=== PATIENT | male | born 1955 | race African-American/Black ===

== ENCOUNTER 2025-06-23 11:35 | Inpatient (IN) | payer OTHER, MEDICAID, MEDICARE ==
[~2025-06-23] VITALS: Ht 172.7 cm; Wt 73.9 kg
[2025-06-23 11:39] VITALS: O2SAT 98
[2025-06-23 12:26] LABS: HEMATOCRIT. 28.1 % (42.0-52.0); HEMOGLOBIN. 9.5 g/dL (14.0-18.0); MEAN PLATELET VOLUME 5.6 fl (7.4-10.4); PLATELET 475 x1000/uL (130-400); RED BLOOD CELL COUNT 2.94 mill/uL (4.7-6.1); RED CELL DISTRIBUTION WIDTH 18.6 % (11.6-14.6)
[2025-06-23 12:40] LABS: CREATININE 1.0 mg/dL (0.6-1.3); UREA NITROGEN BLOOD 13 mg/dL (9-23)
[2025-06-23 12:41] LABS: TROPONIN I HIGH SENSITIVITY 4 ng/L (3.0-53)
[2025-06-23] MEDS: MORPHINE SULFATE 4 MG/ML INJ (FOR IV/IM USE) IV ONE (12:41)
[2025-06-23 12:42] LABS: ASPARTATE AMINOTRANSFERASE 16 IU/L (<34)
[2025-06-23 12:43] LABS: BILIRUBIN DIRECT 0.3 mg/dL (<=3.0); BILIRUBIN TOTAL 0.7 mg/dL (0.1-1.0); PROTEIN TOTAL 7.8 g/dL (6.0-8.3)
[2025-06-23 13:01] LABS: BAND% 1.0 % (1.0-6.0); EOSINOPHILS % MANUAL 1.0 % (0.0-5.0); LYMPHOCYTES % MANUAL 9.0 % (20.0-50.0); MONOCYTES % MANUAL 12.0 % (2.0-8.0); NEUTROPHILS % MANUAL 77.0 % (45.0-75.0); PLATELET ESTIMATE INCREASED
[2025-06-23 15:27] LABS: TROPONIN I HIGH SENSITIVITY 5 ng/L (3.0-53)
[2025-06-23] MEDS ORDERED: GUAIFENESIN 200MG/10ML SUGAR FREE UDC PO PRN (16:00)
[2025-06-23] MEDS ORDERED: IPRATROPIUM/ALBUTEROL 0.5-3(2.5)MG/3ML NEB HHN PRN (16:00)
[2025-06-23] MEDS ORDERED: CLONIDINE 0.1MG TABLET PO PRN (16:00)
[2025-06-23] MEDS ORDERED: ONDANSETRON HCL 4MG/2ML INJ IV PRN (16:00)
[2025-06-23] MEDS ORDERED: ACETAMINOPHEN 325MG TABLET PO PRN ×2 (16:00)
[2025-06-23] MEDS ORDERED: DOCUSATE SODIUM 100MG CAPSULE PO PRN (16:00)
[2025-06-23] MEDS: IOHEXOL-350 100 ML BOTTLE ONE (16:04)
[2025-06-23 17:41] LABS: TROPONIN I HIGH SENSITIVITY 4 ng/L (3.0-53)
[2025-06-23 17:46] LABS: CREATININE 1.0 mg/dL (0.6-1.3); UREA NITROGEN BLOOD 11 mg/dL (9-23)
[2025-06-23 20:00] VITALS: BP 99/68; PULSE 98; RESP 18; TEMP 36.6; O2SAT 99
[2025-06-23 20:16] LABS: VITAMIN B12 SERUM 498 pg/mL (211-911)
[2025-06-23] MEDS: DEXT 5%/0.45% NACL 1000ML 1,000 ML IV SCH (20:33)
[2025-06-23 22:12] VITALS: BP 99/68; PULSE 98; RESP 20; TEMP 36.696
[2025-06-24] VITALS (7 sets, daily range): BP systolic 93–108; BP diastolic 63–75; PULSE 96–104; RESP 17–20; TEMP 36.2–36.6; O2SAT 98–100
[2025-06-24 00:45] LABS: CREATINE KINASE MB FRACTION 0.6 ng/mL (0.5-3.6)
[2025-06-24 00:55] LABS: CLARITY URINE CLEAR (CLEAR); COLOR URINE YELLOW (YELLOW); GLUCOSE URINE NEGATIVE (NEGATIVE); KETONES URINE TRACE (NEGATIVE); LEUKOCYTE ESTERASE URINE NEGATIVE (NEGATIVE); NITRITE URINE NEGATIVE (NEGATIVE); OCCULT BLOOD URINE NEGATIVE (NEGATIVE); PH URINE 6.0 (4.5-8.0); PROTEIN URINE NEGATIVE (NEGATIVE); SPECIFIC GRAVITY URINE 1.026 (1.005-1.030); UROBILINOGEN URINE 1.0 E.U./dL (0.2-1.0)
[2025-06-24 01:22] LABS: *AMPHETAMINES SCREEN URINE NEGATIVE (NEGATIVE); *BARBITURATES SCREEN URINE NEGATIVE (NEGATIVE); *BENZODIAZEPINES SCREEN URINE NEGATIVE (NEGATIVE); *COCAINE SCREEN URINE NEGATIVE (NEGATIVE); CANNABINOID URINE SCREEN NEGATIVE (NEGATIVE); ECSTASY MDMA SCREEN URINE NEGATIVE (NEGATIVE); METHADONE URINE SCREEN NEGATIVE (NEGATIVE); OPIATES URINE SCREEN PRESUMPTIVE POSITIVE (NEGATIVE); PHENCYCLIDINE URINE SCREEN NEGATIVE (NEGATIVE)
[2025-06-24 08:35] LABS: HEMATOCRIT. 26.3 % (42.0-52.0); HEMOGLOBIN. 8.9 g/dL (14.0-18.0); MEAN PLATELET VOLUME 5.9 fl (7.4-10.4); PLATELET 489 x1000/uL (130-400); RED BLOOD CELL COUNT 2.79 mill/uL (4.7-6.1); RED CELL DISTRIBUTION WIDTH 18.2 % (11.6-14.6)
[2025-06-24 08:54] LABS: CREATINE KINASE MB FRACTION < 0.5 ng/mL (0.5-3.6); TROPONIN I HIGH SENSITIVITY 4 ng/L (3.0-53)
[2025-06-24 08:56] LABS: CREATININE 1.0 mg/dL (0.6-1.3)
[2025-06-24 08:57] LABS: UREA NITROGEN BLOOD 10 mg/dL (9-23)
[2025-06-24 08:58] LABS: ASPARTATE AMINOTRANSFERASE 14 IU/L (<34)
[2025-06-24 08:59] LABS: BILIRUBIN DIRECT 0.2 mg/dL (<=3.0); BILIRUBIN TOTAL 0.4 mg/dL (0.1-1.0); PROTEIN TOTAL 7.3 g/dL (6.0-8.3)
[2025-06-24] MEDS ORDERED: ENOXAPARIN 40MG/0.4ML SYR SUBCUT SCH (11:00)
[2025-06-24] MEDS ORDERED: DEXTROSE 50% WATER 50ML SYRINGE IV PRN (16:45)
[2025-06-24] MEDS: BLOOD SUGAR DIAGNOSTIC STRIP TEST SCH (17:29)
[2025-06-24] MEDS: SODIUM CHLORIDE 0.9% 1,000 ML IV ONE (17:40)
[2025-06-24] MEDS: PANTOPRAZOLE SODIUM 40 MG/VIAL IV SCH (17:40)
[2025-06-24] MEDS: INSULIN LISPRO 100 UNITS/ML SUBCUT SCH (17:41)
[2025-06-24 23:08] LABS: BAND% 1.0 % (1.0-6.0); LYMPHOCYTES % MANUAL 13.0 % (20.0-50.0); MONOCYTES % MANUAL 13.0 % (2.0-8.0); NEUTROPHILS % MANUAL 73.0 % (45.0-75.0); PLATELET ESTIMATE INCREASED
[2025-06-25] VITALS: BP 90/54; PULSE 97; RESP 19; TEMP 36.7; O2SAT 100
[2025-06-25 04:00] VITALS: BP 94/58; PULSE 105; RESP 20; TEMP 36.6; O2SAT 99
[2025-06-25 06:12] LABS: FOLATE HEMATOCRIT 28.9 % (37.5-51.0)
[2025-06-25 07:45] LABS: CREATININE 1.0 mg/dL (0.6-1.3); UREA NITROGEN BLOOD 6 mg/dL (9-23)
[2025-06-25] MEDS: SODIUM CHLORIDE 0.9% 1,000 ML IV SCH (11:05)
[2025-06-25 14:27] VITALS: BP 102/66; PULSE 80; RESP 18; TEMP 96.9
[2025-06-26] MEDS ORDERED: ENOXAPARIN 40MG/0.4ML SYR SUBCUT SCH (09:00)
[2025-06-26 14:09] LABS: FOLATE HEMOLYSATE 336.0 ng/mL (Not Estab.); FOLATE RBC 1163 ng/mL (>498)
== END 2025-06-25 15:05 | disposition short-term general hospital (02) | DRG 872 ==
LOC: ER 11:44 → 6WST 14:01 → EDBEDREQ 14:02 → EDBEDREQTM 14:02
PROVIDERS: ADMIT Internal Medicine; ATTEND Internal Medicine
DX: A41.9 Sepsis, unspecified organism (principal); J94.8 Other specified pleural conditions; C34.11 Malignant neoplasm of upper lobe, right bronchus or lung; R04.2 Hemoptysis; K21.9 Gastro-esophageal reflux disease without esophagitis; E87.1 Hypo-osmolality and hyponatremia; D53.9 Nutritional anemia, unspecified; I10 Essential (primary) hypertension; E11.9 Type 2 diabetes mellitus without complications; J44.9 Chronic obstructive pulmonary disease, unspecified; Z85.118 Personal history of other malignant neoplasm of bronchus and lung; Z91.148 Patient's other noncompliance with medication regimen for other reason
CPT/HCPCS: 36415; 71045; 71275; 74174; 76604; 80048; 80076; 80305; 81003; 82550; 82553; 82607; 82728; 82747; 82962; 83036; 83540; 83550; 83880; 84484; 85014; 85025; 85379; 86850; 86900; 93005; 93880; 93970; 97162; 97166; 99285; J1650; J1815; J2270; J2470; Q9967

== ENCOUNTER 2025-07-24 17:03 | Emergency (ER) | payer OTHER, MEDICAID ==
[~2025-07-24] VITALS: Ht 182.9 cm; Wt 82.0 kg
[2025-07-24 17:05] VITALS: O2SAT 99
[2025-07-24] MEDS: CEFTRIAXONE 1GM/50ML 50 ML IV ONE (18:07)
[2025-07-24] MEDS: SODIUM CHLORIDE 0.9% (SEPSIS BOLUS) IV ONE (18:08)
[2025-07-24] MEDS: KETOROLAC 30MG/ML VIAL IV ONE (18:09)
[2025-07-24 19:07] LABS: BASOPHILS % 1.1 % (0.0-2.0); EOSINOPHILS % 1.1 % (0.0-5.0); HEMATOCRIT. 29.3 % (42.0-52.0); HEMOGLOBIN. 9.7 g/dL (14.0-18.0); LYMPHOCYTES % 13.7 % (20.0-50.0); MEAN PLATELET VOLUME 6.3 fl (7.4-10.4); MONOCYTES % 13.3 % (2.0-8.0); NEUTROPHILS % 70.8 % (40.0-76.0); PLATELET 346 x1000/uL (130-400); RED BLOOD CELL COUNT 3.04 mill/uL (4.7-6.1); RED CELL DISTRIBUTION WIDTH 15.7 % (11.6-14.6)
[2025-07-24 19:22] LABS: CREATININE 1.0 mg/dL (0.6-1.3); TROPONIN I HIGH SENSITIVITY < 4 ng/L (3.0-53); UREA NITROGEN BLOOD 15 mg/dL (9-23)
[2025-07-24 19:24] LABS: ASPARTATE AMINOTRANSFERASE 14 IU/L (<34); BILIRUBIN DIRECT 0.1 mg/dL (<=3.0); BILIRUBIN TOTAL 0.3 mg/dL (0.1-1.0); PROTEIN TOTAL 7.5 g/dL (6.0-8.3)
[2025-07-24 19:46] LABS: CLARITY URINE CLEAR (CLEAR); COLOR URINE YELLOW (YELLOW); GLUCOSE URINE NEGATIVE (NEGATIVE); KETONES URINE TRACE (NEGATIVE); LEUKOCYTE ESTERASE URINE NEGATIVE (NEGATIVE); NITRITE URINE NEGATIVE (NEGATIVE); OCCULT BLOOD URINE NEGATIVE (NEGATIVE); PH URINE 6.0 (4.5-8.0); PROTEIN URINE TRACE (NEGATIVE); SPECIFIC GRAVITY URINE 1.018 (1.005-1.030); UROBILINOGEN URINE 1.0 E.U./dL (0.2-1.0)
[2025-07-24] MEDS: MORPHINE SULFATE 4 MG/ML INJ (FOR IV/IM USE) IV ONE (20:14)
[2025-07-24 20:17] LABS: BACTERIA URINE NONE SEEN; RBC URINE NONE SEEN /hpf (0-2); SQUAMOUS EPITHELIAL CELL URINE NONE SEEN /lpf (RARE/1+); WBC URINE 0-2 /hpf (0-2)
[2025-07-24 20:24] LABS: INR 1.0
[2025-07-25 01:05] VITALS: BP 109/76; PULSE 86; RESP 19; TEMP 37.1; O2SAT 99
== END 2025-07-25 01:20 | disposition short-term general hospital (02) ==
LOC: ER 17:03 → CMPBEDREQ 07-25 07:32
DX: A41.9 Sepsis, unspecified organism (principal); E11.9 Type 2 diabetes mellitus without complications; I10 Essential (primary) hypertension; R06.02 Shortness of breath; Z85.118 Personal history of other malignant neoplasm of bronchus and lung
CPT/HCPCS: 99291; 96365; 96375; 80076; 80048; 81003; 83880; 83605; 85025; 85379; 85610; 85730; 86850; 86900; 86901; 87040; 87086; 84484; 36415; 71045; 93005; J1885; J0696; J2270; J7030